=== PATIENT | male | born 1975 | race Caucasian/White ===

== ENCOUNTER 2019-09-14 00:34 | Day surgery (SDC) | payer OTHER, SELFPAY ==
[2019-09-02 13:58] VITALS: BMI 29.2
[2019-09-14] VITALS (9 sets, daily range): BP systolic 108–135; BP diastolic 69–92; PULSE 57–72; RESP 12–20; TEMP 36.3–36.5; O2SAT 94–100
--- NOTE | 2019-09-14 10:09 | WPDANESEPPF ---
Anes - Initial Pre Proc Eval Procedure: Operation Date: 09/14/19 11:30 Proposed Procedures p Umbilical Hernia Repair, Possible Mesh - Cristian Bella DO Date/Time: 09/14/19 10:09 Surgeon: Cristian Belal DO Pre Op Diagnosis: umbilical hernia Patient Data Age: 44 Gender: M Height: 1.93 m Weight: 108.86 kg Allergies Allergy/AdvReac Type Severity Reaction Status Date / Time No Known Allergies Allergy Verified 09/14/19 09:40 Home Medications Medication Instructions Recorded Confirmed Type No Home Medications 06/19/19 09/02/19 History Patient hx anesthesia problems: none Family hx anesthesia problems: none [facility] Social History Social History Smoking status: Never smoker Alcohol intake: current Additional occupation/education comments: Sales Anes - Eval Final PreProcedure Day of Procedure 09/14/19 10:09 Patient weight: overweight Heart: regular rate and rhythm Lungs: clear to auscultation and normal air movement Airway: Mallampati scale class III Neurological: alert and oriented Last oral intake: >/= 8 hours ASA classification: I Emergent: no Anesthetic plan: proceed Anesthesia type and monitoring: general ETT and standard monitoring Informed Consent: The patient's anesthetic plan and its attendant risks and benefits were discussed with the patient/family/POA. Questions were solicited and answers provided to the satisfaction of the patient/family/POA.
[2019-09-14] MEDS: LACTATED RINGERS 1,000 ML 30 ML IV CONT ×2 (10:20→12:29)
[2019-09-14] MEDS: IBUPROFEN IV 800 MG/200 ML 800 MG/200 ML BAG 400 MG IVPB (10:30)
--- NOTE | 2019-09-14 11:13 | PM.IMHP ---
H&P: HPI History of Present Illness Chief complaint: umbilical hernia Narrative: Quique Walker is a 44 year old male who presents for umbilical hernia repair. He has an umbilical bulge that is causing him pain. Review of Systems Review of Systems: All systems reviewed & are unremarkable except as noted in HPI and below (HPI) [facility] Surgical History Surgical History Status post reconstruction of ligament of knee joint Family History Family History Father Family history of premature coronary heart disease Family history of coronary artery disease Family history of heart disease in male family member before age 55 Mother Family history of blood dyscrasia Grandparent Family history of aortic aneurysm Social History Social History Smoking status: Never smoker Alcohol intake: current Additional occupation/education comments: Sales Meds Home Medications and Allergies Home Medications Medication Instructions Recorded Confirmed Type No Home Medications 06/19/19 09/14/19 History Allergies Allergy/AdvReac Type Severity Reaction Status Date / Time No Known Allergies Allergy Verified 09/14/19 09:40 Vital Signs Vital Signs - 24 hr 09/14/19 09:32 Temperature 36.5 C Pulse Rate 59 L Respiratory Rate 20 Blood Pressure 132/85 Pulse Oximetry 100 Exam Const: General: no acute distress and alert Orientation/consciousness: patient oriented x3 HENMT: Head: normocephalic and atraumatic Ears: hearing grossly normal bilaterally General nose exam: Normal nares present Mouth: Yes Normal oral and palatal mucosa present Eyes: Periorbital: periorbital findings normal Sclera: sclerae normal EOM: EOMs intact bilaterally Neck: Neck: normal visual inspection, no lymphadenopathy and trachea midline Chest: Chest palpation & inspection: normal inspection of the chest Resp: Effort & Inspection: normal respiratory effort Auscultation: clear to auscultation bilaterally Cardio: Jugular venous distension: no JVD Rate: regular rate Rhythm: regular rhythm Heart sounds: S1 normal heart sound present and S2 normal heart sound present Peripheral pulses: Peripheral pulses 2+ throughout GI: Inspection: normal to inspection and visible herniation (umbilical) GI Palp: Yes Soft to palpation, No Tenderness to palpation present (GI), No Guarding due to palpation present (GI) and No Rebound tenderness present Percussion: Yes normal to percussion Auscultation: normal bowel sounds : General: Yes no CVA tenderness Back/Spine/Pelvis: Back: no CVA tenderness Neuro: General: patient oriented x3, no focal motor deficits and CN's II-XI intact bilaterally Cognition (Neuro): normal cognition Speech: normal speech Motor exam (neuro): 5/5 motor strength present throughout Extrem: General: capillary refill normal and no clubbing, cyanosis or edema Assessment and Plan Assessment and plan (1) Umbilical hernia: Qualifiers: Obstruction and gangrene presence: without obstruction or gangrene Qualified Code(s): K42.9 - Umbilical hernia without obstruction or gangrene Code(s): K42.9 - Umbilical hernia without obstruction or gangrene Status: Acute Assessment and Plan: I have recommended umbilical hernia repair, possible mesh. I have discussed the procedure, risks, benefits, and alternatives with the patient. All questions answered. No changes since last seen in office.
[2019-09-14] MEDS: ceFAZolin 2 GM/D5W 50 ML 2 GM/50 ML BAG IVPB (11:45)
[2019-09-14] MEDS: BUPIVACAINE/EPINEPHRINE 0.5% 30 ML VIAL INFILTRATE (11:46)
--- NOTE | 2019-09-14 12:18 | P.OP_ITS ---
Procedure Note - Detailed Date of procedure: 09/14/19 Pre-op diagnosis: umbilical hernia Post-op diagnosis: same Procedure performed: Umbilical hernia repair with Parietex ventral patch Description of procedure: * Procedure as well as risks, benefits, and alternatives were discussed with the patient. Written consent was obtained and placed in chart prior to procedure. Patient was brought back to surgical suite. He was placed supine on operating table. He was then intubated by Anesthesia Department. His abdomen was prepped and draped in sterile fashion using chlorhexidine prep. 0.5% bupivacaine with epinephrine was infiltrated locally around the operative area. A 4 cm curvilinear incision was made just inferior to the umbilicus using a 15 blade scalpel. Electrocautery was used for hemostasis and for dissection down through the subcutaneous fat. Hernia sac was encountered and this was carefully freed up from surrounding subcutaneous fat using electrocautery. The hernia sac was freed up all the way down to the level of the fascia. The umbilical stalk was then lifted off of the fascia with electrocautery. The hernia defect was then measured. This was measuring approximately 15 mm. The decision was made to use a 6.6 cm Parietex ventral patch. The peritoneum was cleared under the fascia circumferentially around the hernia using blunt dissection and electrocautery. Once a wide enough pocket was created for the mesh, the mesh was then placed within this preperitoneal pocket and laid out flat centered on the hernia defect. The mesh appeared to be sitting in proper position. The mesh was then secured at the 4 corners using 0 Ethibond U-stitch trans fascial sutures. Once all 4 sutures were placed, the mesh was lifted up against the abdominal wall and appeared to be properly centered on the hernia defect. The fascia of the hernia defect was then reapproximated over the mesh using 0 Ethibond [id number] sutures. The 4 transfascial sutures were then tied down in place. The repair was inspected and appeared secure. 0.5% bupivacaine with epinephrine was infiltrated around the fascia and subcutaneous space. The umbilical stalk was then reapproximated to the fascia using a 3 0 Vicryl simple interrupted suture. The deep dermis was reapproximated using 3 0 Vicryl simple interrupted sutures, and then the skin was approximated using 4 Monocryl running subcuticular suture. Exofin glue was then applied on top. The patient was then awakened from anesthesia, extubated, and transferred to recovery. Implants: 6.6 cm Parietex Ventral Patch Anesthesia: local (0.5% bupivacaine with epinephrine) Surgeon: Cristian Bella DO Estimated blood loss (mL): 5 Complications: No immediate complications Condition: stable Disposition: same day Findings: This is a 44-year-old man who presented with an umbilical bulge that was causing pain. He had noticed a bulge in this area over the past 4 months. He was found to have a reducible umbilical hernia on physical exam. Discussions were made with the patient about his treatment options, and decision was made to proceed with umbilical hernia repair with possible mesh. Umbilical hernia repair was performed. The patient was found to have a 15 mm umbilical hernia. The hernia sac contained some preperitoneal fat but was reducible. A preperitoneal pocket was created for the mesh placement. A 6.6 cm Parietex ventral patch was used to repair the. This was secured using 0 Ethibond U-stitch trans fascial sutures at the 4 tabs. The fascia was then guerrero sed over the mesh using 0 Ethibond [id number] sutures. No specimens were obtained for pathology.
== END 2019-09-14 14:16 | disposition home or self-care (01) ==
PROVIDERS: PCP Internal Medicine; Visit Provider Surgery
PROC: (CPT 49585; principal; 2019-09-14 11:30)
DX: K42.9 Umbilical hernia without obstruction or gangrene (principal)
CPT/HCPCS: 49585; C1781; J0330; J0690; J1100; J1741; J2250; J2405; J2704; J3010; J7120

== ENCOUNTER 2022-10-30 00:42 | Day surgery (SDC) | payer BC, SELFPAY ==
[2022-10-22 12:53] VITALS: BMI 29.7
[2022-10-30 10:11] VITALS: BP 145/95; PULSE 59; RESP 18; TEMP 36.3; O2SAT 100
[2022-10-30] MEDS: LACTATED RINGERS 1,000 ML 150 ML IV CONT (10:31)
--- NOTE | 2022-10-30 10:36 | WPDANESEPPF ---
Anes - Initial Pre Proc Eval Procedure: Operation Date: 10/30/22 11:30 Proposed Procedures p Screening Colonoscopy - Jose Jiménez MD Date/Time: 10/30/22 10:36 Surgeon: Jose Jiménez MD Pre Op Diagnosis: neoplasm screening Patient Data Age: 47 Gender: M Height: 1.93 m Weight: 114 kg Last Vital Signs Temp 36.3 C L 10/30/22 10:11 Pulse 59 L 10/30/22 10:11 Resp 18 10/30/22 10:11 BP 145/95 H 10/30/22 10:11 Pulse Ox 100 10/30/22 10:11 O2 Del Method Room Air 10/30/22 10:11 Allergies Allergy/AdvReac Type Severity Reaction Status Date / Time No Known Allergies Allergy Verified 10/30/22 10:09 Home Medications Medication Instructions Recorded Confirmed Type No Home Medications 10/23/19 10/22/22 History Patient hx anesthesia problems: none Family hx anesthesia problems: none Results Review: All pre-operative results and documents have been reviewed as part of the pre-operative evaluation. [facility] Surgical History Surgical History Status post reconstruction of ligament of knee joint Family History Family History Father Family history of premature coronary heart disease Family history of coronary artery disease Family history of heart disease in male family member before age 55 Mother Family history of blood dyscrasia Grandparent Family history of aortic aneurysm Social History Social History Smoking status: Never smoker Second hand tobacco smoke exposure: No Alcohol intake: current Drinks per week: 6 Alcohol use details: socially Substance use: never Substance use type: does not use Lack of Transportation: No Lack of Food: Never True Current Housing: I Have Housing Concerned About Future Housing: No Difficulty Paying Gas/Electric Bills: No Difficulty Paying for Meds: No Currently Unemployed: No Education: Bachelor's Degree Difficulty w/ Childcare or Family Care: No Living arrangements: with family Occupation/Education: occupation Additional occupation/education comments: Sales Spiritual care concerns: No Anes - Eval Final PreProcedure Day of Procedure 10/30/22 10:36 Patient weight: overweight Heart: regular rate and rhythm Lungs: clear to auscultation Airway: Mallampati scale class II Neurological: alert and oriented Last oral intake: >/= 8 hours ASA classification: II Emergent: no Anesthetic plan: proceed Anesthesia type and monitoring: general GIVS and standard monitoring Results Review: All pre-operative results and documents have been reviewed as part of the pre-operative evaluation. Informed Consent: The patient's anesthetic plan and its attendant risks and benefits were discussed with the patient/family/POA. Questions were solicited and answers provided to the satisfaction of the patient/family/POA.
--- NOTE | 2022-10-30 11:24 | PM.HPGS ---
History of Present Illness History of Present Illness Consent: Risks, benefits, and alternatives have been discussed and questions answered. Patient agrees to proceed with procedure. Chief complaint: neoplasm screening Narrative: Quique Walker is a 47 year old male here for first screening colonoscopy Review of Systems Constitutional: Constitutional: Denies headache(s) and Denies weakness Eyes: Eyes: Denies blurry vision ENT: Reports Normal hearing present, Denies headache(s) and Denies neck pain Cardiovascular: Cardiovascular: Denies chest pain and Denies dyspnea Respiratory: Respiratory: Denies dyspnea Gastrointestinal: Gastrointestinal: Reports no additional gastrointestinal complaints Genitourinary: Genitourinary: Denies dysuria Musculoskeletal: Musculoskeletal: Denies neck pain Integumentary/Breasts: Skin/Breast: Denies dry skin Neurologic: Reports Normal hearing present, Denies headache(s) and Denies weakness Psychiatric: Psychiatric: Denies anxiety Endocrine: Endocrine: Denies change in body appearance Hematologic/Lymphatic: Hematologic/Lymphatic: Denies easy bleeding Allergic/Immunologic: Allergic/Immunologic: Denies urticaria PMFSH Surgical History Surgical History Status post reconstruction of ligament of knee joint Family History Family History Father Family history of premature coronary heart disease Family history of coronary artery disease Family history of heart disease in male family member before age 55 Mother Family history of blood dyscrasia Grandparent Family history of aortic aneurysm Social History Social History Smoking status: Never smoker Second hand tobacco smoke exposure: No Alcohol intake: current Drinks per week: 6 Alcohol use details: socially Substance use: never Substance use type: does not use Lack of Transportation: No Lack of Food: Never True Current Housing: I Have Housing Concerned About Future Housing: No Difficulty Paying Gas/Electric Bills: No Difficulty Paying for Meds: No Currently Unemployed: No Education: Bachelor's Degree Difficulty w/ Childcare or Family Care: No Living arrangements: with family Occupation/Education: occupation Additional occupation/education comments: Sales Spiritual care concerns: No Meds Home Medications and Allergies Home Medications Medication Instructions Recorded Confirmed Type No Home Medications 10/23/19 10/22/22 History Allergies Allergy/AdvReac Type Severity Reaction Status Date / Time No Known Allergies Allergy Verified 10/30/22 10:09 Vital Signs Vital Signs - 24 hr 10/30/22 10:11 Temperature 97.3 F L Pulse Rate 59 L Respiratory Rate 18 Blood Pressure 145/95 H Pulse Oximetry 100 Oxygen Delivery Room Air Exam Const: General: comfortable and no acute distress HENMT: Face/Nose/Sinus: Normal nares present Eyes: General: appearance normal, both eyes and all related structures Neck: Neck: no JVD Resp: Auscultation: clear to auscultation bilaterally Cardio: Rate: regular rate Rhythm: regular rhythm GI: Inspection: non-distended GI Palp: Yes Soft to palpation Skin: General skin exam: normal color Neuro: General: gait normal Speech: normal speech Extrem: General: normal to inspection Psych: Mental Status: mental status grossly normal Assessment and Plan Assessment and plan (1) Encounter for screening for malignant neoplasm of colon: Code(s): Z12.11 - Encounter for screening for malignant neoplasm of colon Status: Acute Assessment and Plan: colonoscopy
[2022-10-30 11:48] VITALS: BP 115/74; PULSE 64; RESP 25; O2SAT 95
[2022-10-30 11:58] VITALS: BP 131/83; PULSE 66; RESP 21; O2SAT 100
[2022-10-30 12:08] VITALS: BP 124/84; PULSE 56; RESP 23; O2SAT 100
== END 2022-10-30 12:15 | disposition home or self-care (01) ==
PROVIDERS: PCP Internal Medicine; Visit Provider Internal Medicine Gastroenterology
PROC: 0DJD8ZZ Inspection of Lower Intestinal Tract, Via Natural or Artificial Opening Endoscopic (ICD-10-PCS; CPT 45378; principal; 2022-10-30 11:30)
DX: Z12.11 Encounter for screening for malignant neoplasm of colon (principal); K64.8 Other hemorrhoids
CPT/HCPCS: 45378; J2704; J7120